=== PATIENT | female | born 1975 | race Caucasian/White ===

== ENCOUNTER 2016-12-28 09:19 | Outpatient (CLI) | payer MEDICAID ==
[2016-12-28] MEDS ORDERED: IOPAMIDOL-300 50 ML VIAL PO ONE (10:56)
[2016-12-28] MEDS ORDERED: IOPAMIDOL-300 100 ML VIAL IVP ONE (10:56)
--- NOTE | 2016-12-28 12:43 | CT Report ---
CT ABDOMEN AND PELVIS WITH AND WITHOUT CONTRAST: 12/28/2016 CLINICAL INDICATION: Increasing right-sided pain. TECHNIQUE: Axial CT images of the abdomen and pelvis were obtained prior to and following 100 mL Iso nilda-300 intravenously. Oral contrast was also administered. No previous CT is available for boubacar irizarry. In accordance with CT protocol optimization, one or more of the following dose reduction techniques w ere utilized for this exam: automated exposure control, adjustment of mA and/or KV based on patient size, or use of iterative reconstructive technique. FINDINGS: Limited evaluation of the lung bases is unremarkable. Abdomen: The liver, spleen, pancreas, kidneys, and adrenal glands are unremarkable. The patient is status post cholecystectomy. No bowel dilatation, free gas, or free fluid is present. No abdominal adenopathy is seen. Pelvis: The appendix is seen in the right lower quadrant, and is normal in caliber. The pelvic orga ns appear unremarkable. No pelvic adenopathy or free fluid is present. Osseous structures demonstrate degenerative changes. IMPRESSION: CHANGES OF CHOLECYSTECTOMY. OTHERWISE, NORMAL CT OF THE ABDOMEN AND PELVIS WITH AND WIT HOUT CONTRAST. NO EVIDENT ETIOLOGY FOR PATIENT'S RIGHT-SIDED PAIN. JOB #: [id number] EXT JOB #:[id number]
== END 2016-12-28 09:20 | disposition home or self-care (01) ==
LOC: DI 09:19
PROVIDERS: ATTEND Obstetrics & Gynecology
DX: R10.30 Lower abdominal pain, unspecified (principal); Z90.49 Acquired absence of other specified parts of digestive tract
CPT/HCPCS: 74178; Q9967

== ENCOUNTER 2016-12-28 09:22 | Outpatient (CLI) | payer MEDICAID ==
--- NOTE | 2016-12-31 13:09 | Mammography Report ---
DIGITAL SCREENING MAMMOGRAM: 12/28/2016 CLINICAL INDICATION: A 41-year-old for baseline. TECHNIQUE: Routine CC and MLO projections were obtained of the breasts. FINDINGS: The breasts demonstrate scattered fibroglandular densities bilaterally. No suspicious mas ses, clustered microcalcifications, or regions of architectural distortion are identified. IMPRESSION: NEGATIVE EXAMINATION. RECOMMENDATION: Routine annual screening unless otherwise clinically indicated. BI-RADS category 1, negative. STANDARD QUALIFYING STATEMENTS 1. This examination was reviewed with the aid of Computer-Aided Detection (CAD). 2. A negative or benign imaging report should not delay biopsy if clinically suspicious findings are present. Consider surgical consultation if warranted. More than 5% of cancers are not identified by i maging. 3. Dense breasts may obscure an underlying neoplasm. JOB #: [id number] EXT JOB #:[id number]
== END 2016-12-28 09:23 | disposition home or self-care (01) ==
LOC: DI 09:22
PROVIDERS: ATTEND Obstetrics & Gynecology
DX: Z12.31 Encounter for screening mammogram for malignant neoplasm of breast (principal)
CPT/HCPCS: 77067

== ENCOUNTER 2017-01-26 16:30 | Outpatient (CLI) | payer MEDICAID ==
--- NOTE | 2017-01-28 10:34 | MRI Report ---
EXAM: LEFT KNEE MRI WITHOUT CONTRAST EXAM DATE: 01/26/2017 05:25 PM. CLINICAL HISTORY: Left knee pain for one year. COMPARISON: None. TECHNIQUE: Multiplanar, multisequence T1-weighted and fluid-sensitive sequences of the knee without c ontrast. Other: None. FINDINGS: Bones: No fractures or subluxations. No marrow edema. No bone lesions. Articular Cartilage: Unremarkable. Medial Meniscus: The medial meniscus is intact. Lateral Meniscus: The lateral meniscus is intact. Cruciate Ligaments: The anterior and posterior cruciate ligaments are intact. Collateral Ligaments: The medial collateral and lateral collateral ligamentous structures are intact. Tendons: The quadriceps, semimembranosus, popliteus tendons are unremarkable. There is mild proximal patellar tendinosis. Musculature: No edema or fatty atrophy. Other: A minimal knee effusion is demonstrated. No popliteal cyst. No loose bodies. The medial and l ateral retinacula are intact. Prepatellar subcutaneous edema is present. IMPRESSION: 1. Mild proximal patellar tendinosis. 2. Minimal knee effusion. [facility] MUSCULOSKELETAL RADIOLOGY SECTION Referring Provider Line: [phone] SITE ID: [id number]
== END 2017-01-26 16:31 | disposition home or self-care (01) ==
LOC: DI 16:30
PROVIDERS: ATTEND Orthopaedic Surgery
DX: M67.962 Unspecified disorder of synovium and tendon, left lower leg (principal); M25.462 Effusion, left knee

== ENCOUNTER 2018-02-06 12:48 | Emergency (ER) | payer SELFPAY ==
[2018-02-06 13:42] LABS: BASOPHILS # (AUTO) 0.1 10^3/uL (0.0-0.1); BASOPHILS % (AUTO) 0.9 %; EOSINOPHILS # (AUTO) 0.1 10^3/uL (0.0-0.7); EOSINOPHILS % (AUTO) 2.5 %; HGB - HEMOGLOBIN 14.2 g/dL (12.0-16.0); LYMPHOCYTES # (AUTO) 2.1 10^3/uL (1.5-3.5); LYMPHOCYTES % (AUTO) 35.7 %; MEAN CORPUSCULAR HEMOGLOBIN 27.1 pg (27.0-31.0); MEAN CORPUSCULAR HGB CONC 33.9 g/dL (32.0-36.0); MEAN CORPUSCULAR VOLUME 79.8 fL (81.0-99.0); MEAN PLATELET VOLUME 7.2 fL (7.9-10.8); MONOCYTES # (AUTO) 0.7 10^3/uL (0.0-1.0); MONOCYTES % (AUTO) 12.7 %; NEUTROPHILS # (AUTO) 2.8 10^3/uL (1.5-6.6); NEUTROPHILS % (AUTO) 48.2 %; PLT - PLATELET COUNT 276 10^3/uL (130-450); RED BLOOD COUNT 5.25 10^6/uL (4.20-5.40); RED CELL DISTRIBUTION WIDTH 15.5 % (12.0-15.0); WHITE BLOOD COUNT 5.8 x10^3/uL (4.8-10.8)
[2018-02-06] MEDS ORDERED: ONDANSETRON 4 MG/2 ML VIAL IVP STA (13:47)
[2018-02-06 13:55] LABS: ALBUMIN 4.1 g/dL (3.2-5.5); BILIRUBIN,TOTAL 1.1 mg/dL (0.2-1.0); CALCIUM 8.9 mg/dL (8.5-10.3); CREATININE 0.7 mg/dL (0.4-1.0); TOTAL PROTEIN 8.1 g/dL (6.7-8.2)
[2018-02-06] MEDS ORDERED: POTASSIUM CHLORIDE 20 MEQ TABLET PO STA (14:01)
[2018-02-06] MEDS ORDERED: SODIUM CHLORIDE 0.9% 1,000 ML IV ONE (14:01)
--- NOTE | 2018-02-06 14:23 | ED Physician Documentation ---
History of Present Illness - Stated complaint Stated Complaint: N/V/D - Chief complaint Chief Complaint: Abd Pain - History obtained from History obtained from: Patient - Additonal information Additional information: 42-year-old female presents the emergency department with 5 days of nausea, vomiting and diarrhea which has progressively worsened. The patient reports generalized abdominal cramping which is associated with the episodes of diarrhea and vomiting. The patient denies any focal area of abdominal pain or blood in the vomit or stools. The patient denies any recent antibiotic usage, but the patient was recently in [place]. The patient denies fevers or chills. No relieving factors. Symptoms are described as moderate.Recently the patient has no active abdominal pain or vomiting or diarrhea Review of Systems Constitutional: reports: Fatigue. 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: Ovarian cysts : None HEENT: None Psych: None Musculoskeletal: None Derm: None - Past Surgical History Past Surgical History: Yes General: 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, 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 - Present Medications Home Medications: Ambulatory Orders Medication Instructions Recorded Confirmed Ondansetron Odt [Zofran] 4 mg TL Q6H PRN #20 tablet 02/06/18 - Allergies Allergies/Adverse Reactions: Allergies Allergy/AdvReac Type Severity Reaction Status Date / Time No Known Drug Allergies Allergy Verified 02/06/18 13:01 - Social History Does the pt smoke?: No Smoking Status: Never smoker Does the pt drink ETOH?: No Does the pt have substance abuse?: No - Immunizations Immunizations are current?: Yes - POLST Patient has POLST: No PD ED PE NORMAL - General General: Alert and oriented X 3, No acute distress - HEENT HEENT: Atraumatic, PERRL, EOMI, Ears normal, Moist mucous membranes - Cardiac Cardiac: RRR, Strong equal pulses - Respiratory Respiratory: No respiratory distress - Abdomen Abdomen: Normal bowel sounds, Soft, Non tender, Non distended - Derm Derm: Normal color, Warm and dry, No rash - Extremities Extremities: No deformity - Neuro Neuro: Alert and oriented X 3, Normal speech - Psych Psych: Normal mood Results - Vitals Vitals: Vital Signs - 24 hr 02/06/18 13:00 Temperature 36.1 C L Heart Rate 95 Respiratory 18 Rate Blood Pressure 130/94 H O2 Saturation 96 Oxygen O2 Source Room air - Labs Labs: Laboratory Tests 02/06/18 02/06/18 02/06/18 13:37 13:37 14:26 WBC 5.8 RBC 5.25 Hgb 14.2 Hct 41.9 MCV 79.8 L MCH 27.1 MCHC 33.9 RDW 15.5 H Plt Count 276 MPV 7.2 L Neut # (Auto) 2.8 Lymph # (Auto) 2.1 [place] # (Auto) 0.7 Eos # (Auto) 0.1 Baso # (Auto) 0.1 Absolute Nucleated RBC 0.00 Nucleated RBC % 0.1 Sodium 135 Potassium 3.1 L Chloride 105 Carbon Dioxide 23 Anion Gap 7.0 BUN 16 Creatinine 0.7 Estimated GFR (MDRD) 92 Glucose 109 H Calcium 8.9 Total Bilirubin 1.1 H AST 37 ALT 48 Alkaline Phosphatase 101 Total Protein 8.1 Albumin 4.1 Globulin 4.0 Albumin/Globulin Ratio 1.0 Lipase 24 Urine Color YELLOW Urine Clarity HAZY Urine pH 6.0 Ur Specific [place] 1.025 Urine Protein TRACE Urine Glucose (UA) NEGATIVE Urine Ketones TRACE Urine Occult Blood NEGATIVE Urine Nitrite NEGATIVE Urine Bilirubin NEGATIVE Urine Urobilinogen 0.2 (NORMAL) Ur Leukocyte Esterase NEGATIVE Ur Microscopic Review INDICATED Urine Culture Comments Not Reportable Urine HCG, Qual 02/06/18 14:26 WBC RBC Hgb Hct MCV MCH MCHC RDW Plt Count MPV Neut # (Auto) Lymph # (Auto) [place] # (Auto) Eos # (Auto) Baso # (Auto) Absolute Nucleated RBC Nucleated RBC % Sodium Potassium Chloride Carbon Dioxide Anion Gap BUN Creatinine Estimated GFR (MDRD) Glucose Calcium Total Bilirubin AST ALT Alkaline Phosphatase Total Protein Albumin Globulin Albumin/Globulin Ratio Lipase Urine Color Urine Clarity Urine pH Ur Specific [place] 1.025 Urine Protein Urine Glucose (UA) Urine Ketones Urine Occult Blood Urine Nitrite Urine Bilirubin Urine Urobilinogen Ur Leukocyte Esterase Ur Microscopic Review Urine Culture Comments Urine HCG, Qual NEGATIVE - Rads (name of study) Acute abdominal series Radiology: Final report received, See rad report PD MEDICAL DECISION MAKING - ED course ED course: The patient's symptoms most likely represent a viral etiology. On reexamination the patient resting comfortably and is denying any area of discomfort. The patient has no focal area of pain or current pain. The patient appears appropriate for discharge home in ongoing outpatient management. I discussed with the patient warning signs for a more serious intra -abdominal process and recommended returning to the emergency department for reevaluation and further workup. Currently at this time the patient's symptoms do not necessitate any further advanced imaging in the emergency department. - Sepsis Event Vital Signs: Vital Signs - 24 hr 02/06/18 13:00 Temperature 36.1 C L Heart Rate 95 Respiratory 18 Rate Blood Pressure 130/94 H O2 Saturation 96 Oxygen O2 Source Room air Departure - Departure Disposition: 01 Home, Self Care Clinical Impression: Vomiting Qualifiers: Vomiting type: unspecified Vomiting Intractability: non-intractable Nausea presence: with nausea Qualified Code(s): R11.2 - Nausea with vomiting, unspecified Abdominal pain Qualifiers: Abdominal location: unspecified location Qualified Code(s): R10.9 - Unspecified abdominal pain Diarrhea Qualifiers: Diarrhea type: unspecified type Qualified Code(s): R19.7 - Diarrhea, unspecified Condition: Good Instructions: Abdominal Pain, ED Diarhhea Viral Ch, ED Nausea Vomiting Prescriptions: Ondansetron Odt [Zofran] 4 mg TL Q6H PRN #20 tablet PRN Reason: Nausea / Vomiting Comments: Please follow-up with primary care this coming week. Please return to the emergency department immediately for worsening symptoms or new concerns
[2018-02-06 14:44] LABS: BILIRUBIN,URINE NEGATIVE (NEGATIVE); GLUCOSE, URINE (UA) NEGATIVE (NEGATIVE); KETONES,URINE (UA) TRACE mg/dL (NEGATIVE); LEUKOCYTE ESTERASE, URINE NEGATIVE (NEGATIVE); NITRITE,URINE NEGATIVE (NEGATIVE); OCCULT BLOOD,URINE NEGATIVE (NEGATIVE); PROTEIN,URINE TRACE mg/dL (NEGATIVE); UROBILINOGEN,URINE 0.2 (NORMAL) E.U./dL (NORMAL)
[2018-02-06 14:47] LABS: CLARITY,URINE HAZY (CLEAR); HCG UR QUAL NEGATIVE
--- NOTE | 2018-02-06 15:01 | XRAY Report ---
Procedure Date: 02/06/2018 Accession Number: [id number] / [id number] Procedure: XR - Abdomen Acute CPT Code: FULL RESULT: EXAM: ABDOMINAL SERIES AND PA CHEST EXAM DATE: 02/06/2018 02:19 PM. CLINICAL HISTORY: N/v/d. COMPARISON: CT abdomen pelvis 12/28/2016. TECHNIQUE: 3 views abdomen and 1 view chest. FINDINGS: CHEST: Lungs/Pleura: No focal opacities. No effusion or pneumothorax. Mediastinum: Within exam limitations, cardiomediastinal contour is normal. ABDOMEN: Bowel Gas Pattern: Gas in stomach, small bowel, and colon without abnormal distention or air-fluid levels. No significant formed stool in the colon. No pneumatosis or portal venous gas. Free Air: None. Other: Cholecystectomy clips. IMPRESSION: Unremarkable bowel gas pattern. [facility]
[2018-02-06 15:10] VITALS: BP 112/81
[2018-02-06 15:19] LABS: BACTERIA,URINE Few /HPF (None Seen); MUCUS,URINE Moderate Strands; RBC,URINE 0-5 /HPF (0-5); SQUAMOUS EPITHELIAL CELL,UR MANY Squamous (<= Few)
== END 2018-02-06 15:44 | disposition home or self-care (01) ==
LOC: ED 12:48
DX: R11.2 Nausea with vomiting, unspecified (principal); R10.9 Unspecified abdominal pain; R19.7 Diarrhea, unspecified
CPT/HCPCS: 36415; 74022; 80053; 81001; 81025; 83690; 85025; 96361; 96374; 99283; 99284; A9270; 81003; 87086

== ENCOUNTER 2018-10-14 16:14 | Outpatient (CLI) | payer MEDICAID ==
--- NOTE | 2018-10-15 10:30 | Mammography Report ---
Reason: BREAST,SCREENING FOR MALIGNANT NEOPLASM Procedure Date: 10/15/2018 Accession Number: [id number] / [id number] Procedure: ANAT - Screening Mammo w/Rishi CPT Code: FULL RESULT: EXAM: Screening Mammo w/Rishi DATE: 10/15/2018 10:20 AM CLINICAL HISTORY: Screening encounter. No reported risk factors. TECHNIQUE: Bilateral CC and MLO views were obtained. COMPARISON: 12/28/2016. FINDINGS: The breasts demonstrate scattered fibroglandular densities bilaterally. No suspicious masses, clustered microcalcifications, or regions of architectural distortion are identified. IMPRESSION: Negative examination RECOMMENDATION: Routine annual screening unless otherwise clinically indicated. BIRADS CATEGORY 1: Negative STANDARD QUALIFYING STATEMENTS: 1. This examination was not reviewed with the aid of Computer-Aided Detection (CAD). 2. A negative or benign imaging report should not delay biopsy if clinically suspicious findings are present. Consider surgical consultation if warrented. More than 5% of cancers are not identified by imaging. 3. Dense breasts may obscure an underlying neoplasm. 4. This examination was reviewed with the aid of 3D breast imaging (tomosynthesis).
== END 2018-10-14 16:15 | disposition home or self-care (01) ==
LOC: DI 16:14
PROVIDERS: ATTEND Nurse Practitioner Obstetrics & Gynecology
DX: Z12.31 Encounter for screening mammogram for malignant neoplasm of breast (principal)
CPT/HCPCS: 77063; 77067

== ENCOUNTER 2020-06-20 07:00 | Outpatient (CLI) | payer MEDICAID ==
[2020-06-20 22:15] LABS: CANDIDA GROUP DNA NEGATIVE (NEGATIVE); CANDIDA KRUSEI DNA NEGATIVE (NEGATIVE); TRICHOMONAS VAGINALIS DNA NEGATIVE (NEGATIVE)
== END 2020-06-20 23:59 | disposition home or self-care (01) ==
LOC: LAB.R 07:00
PROVIDERS: ATTEND Obstetrics & Gynecology
DX: R10.9 Unspecified abdominal pain (principal)
CPT/HCPCS: 87661; 87801

== ENCOUNTER 2020-07-06 18:47 | Outpatient (CLI) | payer MEDICAID ==
--- NOTE | 2020-07-07 09:28 | Ultrasound Report ---
PROCEDURE: Pelvic w/Transvaginal INDICATIONS: PELVIC PAIN LEFT, UNSPECIFIED ABD PAIN. S/P LSO TECHNIQUE: Real-time scanning was performed of the pelvic organs, with image documentation. Additional endovagi nal scanning was necessary due to incomplete visualization of the adnexal and endometrial structures by transabdominal scanning. COMPARISON: CT abdomen/pelvis 01/07/2017. FINDINGS: Transabdominal scanning: Limited scanning through the kidneys shows no hydronephrosis. No pathologi c free abdominal or pelvic fluid. Endovaginal scanning: Uterus: Uterus is moderately enlarged in size at 4.4 x 8.6 x 14.4 cm. The endometrium measures 9.9 mm in combined thickness. Discrete uterine fibroids are not seen. Ovaries: Left ovary reportedly surgically absent, right ovary measures 2.9 x 3.9 x 4.3 cm. IMPRESSION: Reported prior left oophorectomy, right ovary is relatively poorly seen but appears free of mass or a bnormal enlargement. The uterus is moderately enlarged, and the myometrium is mildly heterogeneous, b ut no uterine fibroid is found. An endometrial mass is not identified. A definite source of left-side d pain is not seen, depending on the clinical status follow-up by pelvic CT scanning may be warranted . Reviewed by: Rony Kingston MD on 07/07/2020 9:26 AM PST Approved by: Rony Kingston MD on 07/07/2020 9:26 AM PST Station ID: [id number]
--- NOTE | 2020-07-07 09:59 | Ultrasound Report ---
PROCEDURE: Retroperitoneal INDICATIONS: LT PELVIC PAIN, UNSP ABD PAIN TECHNIQUE: Real-time scanning was performed of the retroperitoneal organs, with image documentation. COMPARISON: None. FINDINGS: Kidneys: Kidneys are normal in size. Right kidney measures 11.3 cm long; left kidney measures 12.2 cm long. Right renal cortical thickness is 1.8 cm; left renal cortical thickness is 1.8 cm. No shanel d masses, hydronephrosis, or nephrolithiasis. Pancreas: Visualized portions of the pancreas are sonographically normal. Aorta: Visualized aorta is normal in caliber at 3 cm or less. Iliac arteries: Proximal common iliac arteries are normal in caliber at 2.5 cm or less. IVC: Intrahepatic inferior vena cava is patent. Miscellaneous: No free abdominal fluid. Normal bladder function with 369 cc prevoid and 30 cc postv oid IMPRESSION: No hydronephrosis or nephrolithiasis found. No suspicion for urinary tract stone seen. A source of le ft-sided pelvic pain is not identified. Reviewed by: Rony Kingston MD on 07/07/2020 9:58 AM PST Approved by: Rony Kingston MD on 07/07/2020 9:58 AM PST Station ID: [id number]
== END 2020-07-06 18:48 | disposition home or self-care (01) ==
LOC: DI 18:47
PROVIDERS: ATTEND Obstetrics & Gynecology
DX: R10.2 Pelvic and perineal pain (principal); N85.2 Hypertrophy of uterus; Z90.721 Acquired absence of ovaries, unilateral

== ENCOUNTER 2022-01-03 21:52 | Emergency (ER) | payer MEDICAID ==
[2022-01-03 22:03] VITALS: BP 137/85
== END 2022-01-04 00:10 | disposition left against medical advice (07) ==
LOC: ED 21:52
DX: Z53.21 Procedure and treatment not carried out due to patient leaving prior to being seen by health care provider (principal)

== ENCOUNTER 2022-07-24 15:46 | Outpatient (CLI) | payer MEDICAID ==
[2022-07-24 16:13] LABS: HCT - HEMATOCRIT 31.5 % (37.0-47.0); HGB - HEMOGLOBIN 9.3 g/dL (12.0-16.0); MEAN CORPUSCULAR HEMOGLOBIN 21.7 pg (27.0-31.0); MEAN CORPUSCULAR HGB CONC 29.5 g/dL (32.0-36.0); MEAN CORPUSCULAR VOLUME 73.4 fL (81.0-99.0); MEAN PLATELET VOLUME 8.7 fL (7.9-10.8); RED BLOOD COUNT 4.29 10^6/uL (4.20-5.40); RED CELL DISTRIBUTION WIDTH 18.4 % (12.0-15.0); WHITE BLOOD COUNT 4.8 x10^3/uL (4.8-10.8)
[2022-07-24 16:35] LABS: THYROID STIMULATING HORMONE 0.93 uIU/mL (0.34-5.60)
[2022-07-24 16:38] LABS: FREE T4 (FREE THYROXINE) 1.07 ng/dL (0.58-1.64)
== END 2022-07-24 15:47 | disposition home or self-care (01) ==
LOC: LAB 15:46
PROVIDERS: ATTEND Nurse Practitioner
DX: N93.9 Abnormal uterine and vaginal bleeding, unspecified (principal)
CPT/HCPCS: 36415; 81001; 82728; 84439; 84443; 85027; 87086

== ENCOUNTER 2022-07-25 08:00 | Outpatient (CLI) | payer MEDICAID ==
[2022-07-25 13:23] LABS: BILIRUBIN,URINE NEGATIVE (NEGATIVE); GLUCOSE, URINE (UA) NEGATIVE (NEGATIVE); KETONES,URINE (UA) NEGATIVE (NEGATIVE); LEUKOCYTE ESTERASE, URINE NEGATIVE (NEGATIVE); NITRITE,URINE NEGATIVE (NEGATIVE); OCCULT BLOOD,URINE LARGE (NEGATIVE); PROTEIN,URINE NEGATIVE (NEGATIVE); UROBILINOGEN,URINE 0.2 (NORMAL) E.U./dL (NORMAL)
[2022-07-25 13:24] LABS: CLARITY,URINE CLOUDY (CLEAR)
[2022-07-25 13:31] LABS: AMORPHOUS SEDIMENT,UR Marked /LPF; BACTERIA,URINE Few /HPF (None Seen); RBC,URINE 0-5 /HPF (0-5); SQUAMOUS EPITHELIAL CELL,UR RARE Squamous (<= Few); WBC,URINE 0-3 /HPF (0-5)
[2022-07-25 23:19] LABS: BACTERIAL VAGINOSIS DNA NEGATIVE (NEGATIVE); CANDIDA GLABRATA DNA NEGATIVE (NEGATIVE); CANDIDA GROUP DNA NEGATIVE (NEGATIVE); CANDIDA KRUSEI DNA NEGATIVE (NEGATIVE); TRICHOMONAS VAGINALIS DNA NEGATIVE (NEGATIVE)
[2022-07-27 18:54] LABS: CHLAMYDIA TRACHOMATIS DNA NEGATIVE (NEGATIVE); NEISSERIA GONORRHOEAE DNA NEGATIVE (NEGATIVE)
== END 2022-07-25 23:59 | disposition home or self-care (01) ==
LOC: LAB.WC 08:00
PROVIDERS: ATTEND Nurse Practitioner
DX: N93.9 Abnormal uterine and vaginal bleeding, unspecified (principal)
CPT/HCPCS: 81001; 81514; 87086; 87491; 87591; 87661

== ENCOUNTER 2022-08-07 20:38 | Outpatient (CLI) | payer MEDICAID ==
--- NOTE | 2022-08-08 15:53 | Ultrasound Report ---
PROCEDURE: Pelvic w/Transvaginal INDICATIONS: ABN UTERINE BLEEDING TECHNIQUE: Real-time scanning was performed of the pelvic organs, with image documentation. Additional endovagi nal scanning was necessary due to incomplete visualization of the adnexal and endometrial structures by transabdominal scanning. COMPARISON: Pelvic ultrasound 07/06/2020 FINDINGS: Uterus: Uterus is retroverted and enlarged in size at 13.8 x 5.6 x 6.9 cm. The myometrium is hetero geneous. The endometrium measures 14.9 mm in combined thickness. No focal uterine masses are identi fied. Ovaries: The right ovary measures 4.9 x 4.1 x 5.6 cm, with a calculated ovarian volume of 59.3 cc. The left has been removed. There are foci of decreased echogenicity within the left ovary measuring 2 7 x 30 x 36 cm, 30 x 17 x 23 mm and 13 x 7 x 11 mm. Other: No pathologic free abdominal or pelvic fluid. IMPRESSION: Heterogeneous appearance of the uterus with enlargement. Although no discrete fibroids are identified , given enlargement and history of uterine bleeding, nonvisualized fibroids cannot be excluded. Right ovarian cysts. Reviewed by: Shannon Paredes MD on 08/08/2022 3:52 PM PST Approved by: Shannon Paredes MD on 08/08/2022 3:52 PM PST Station ID: [id number]
== END 2022-08-07 20:39 | disposition home or self-care (01) ==
LOC: DI 20:38
PROVIDERS: ATTEND Nurse Practitioner
DX: N93.9 Abnormal uterine and vaginal bleeding, unspecified (principal); N85.2 Hypertrophy of uterus; N83.201 Unspecified ovarian cyst, right side

== ENCOUNTER 2022-12-27 21:08 | Outpatient (CLI) | payer MEDICAID ==
--- NOTE | 2022-12-28 10:01 | Ultrasound Report ---
PROCEDURE: Pelvic w/Transvaginal INDICATIONS: IUD INSERTION TECHNIQUE: Real-time scanning was performed of the pelvic organs, with image documentation. Additional endovagi nal scanning was necessary due to incomplete visualization of the adnexal and endometrial structures by transabdominal scanning. COMPARISON: 08/07/2022 FINDINGS: Uterus: Enlarged uterus measuring a calculated volume of 330 cc, measuring about 11 x 5.5 x 10 cm. Re troverted positioning. Echotexture is heterogeneous. Endometrium measures 23 mm. The IUD appears to be in the lower uterine segment. Sonographic visualiza tion is suboptimal however. There are nabothian cysts. Ovaries: Right ovary measures a volume of 38 cc. There may be cysts, difficult to visualize on ultras ound. Left ovary is absent. Other: No pathologic free fluid. IMPRESSION: IUD appears to be a lower uterine segment. Enlarged uterus with heterogeneity, with differential including adenomyosis. Thickened endometrium me asuring 23 mm. Enlarged right ovary, possibly with multiple cysts. The left ovary is absent. Overall sonographic visualization is suboptimal. If there is need for further imaging, consider MRI. Reviewed by: Luis Rao MD on 12/28/2022 10:00 AM PDT Approved by: Luis Rao MD on 12/28/2022 10:00 AM PDT Station ID: [id number]
== END 2022-12-27 21:09 | disposition home or self-care (01) ==
LOC: DI 21:08
PROVIDERS: ATTEND Obstetrics & Gynecology
DX: Z30.431 Encounter for routine checking of intrauterine contraceptive device (principal)

== ENCOUNTER 2023-01-03 10:57 | Emergency (ER) | payer MEDICAID ==
[2023-01-03 11:36] LABS: BASOPHILS % (AUTO) 0.3 %; EOSINOPHILS # (AUTO) 0.1 10^3/uL (0.0-0.7); EOSINOPHILS % (AUTO) 1.1 %; HCT - HEMATOCRIT 27.9 % (37.0-47.0); HGB - HEMOGLOBIN 8.7 g/dL (12.0-16.0); LYMPHOCYTES # (AUTO) 1.8 10^3/uL (1.5-3.5); LYMPHOCYTES % (AUTO) 28.8 %; MEAN CORPUSCULAR HEMOGLOBIN 24.6 pg (27.0-31.0); MEAN CORPUSCULAR HGB CONC 31.2 g/dL (32.0-36.0); MEAN CORPUSCULAR VOLUME 78.8 fL (81.0-99.0); MEAN PLATELET VOLUME 8.4 fL (7.9-10.8); MONOCYTES # (AUTO) 0.5 10^3/uL (0.0-1.0); MONOCYTES % (AUTO) 7.9 %; NEUTROPHILS # (AUTO) 3.8 10^3/uL (1.5-6.6); NEUTROPHILS % (AUTO) 61.6 %; PLT - PLATELET COUNT 271 10^3/uL (130-450); RED BLOOD COUNT 3.54 10^6/uL (4.20-5.40); RED CELL DISTRIBUTION WIDTH 16.2 % (12.0-15.0); WHITE BLOOD COUNT 6.2 x10^3/uL (4.8-10.8)
[2023-01-03 11:46] LABS: ALBUMIN 3.5 g/dL (3.2-5.5); ALBUMIN/GLOBULIN RATIO 1.1 (1.0-2.2); BILIRUBIN,TOTAL 0.5 mg/dL (0.2-1.0); CALCIUM 7.8 mg/dL (8.5-10.3); CREATININE 0.5 mg/dL (0.4-1.0); POTASSIUM 3.8 mmol/L (3.5-5.0); TOTAL PROTEIN 6.7 g/dL (6.7-8.2)
--- NOTE | 2023-01-03 12:39 | CONSULTATION NOTE ---
Surgery Consult - Consult Date Consult Date: 01/03/23 - Chief Complaint Chief Complaint: vaginal bleeding - Home Meds/Allergies Allergies/Adverse Reactions: Allergies Allergy/AdvReac Type Severity Reaction Status Date / Time No Known Drug Allergies Allergy Verified 01/03/23 11:10 - Vital Signs Vital Signs: Last Vital Signs Temp 97.5 F L 01/03/23 11:10 Pulse 73 01/03/23 11:10 Resp 16 01/03/23 11:10 BP 132/76 H 01/03/23 11:10 Pulse Ox 99 01/03/23 11:10 O2 Flow Rate - Lab Results Result Diagrams: 01/03/23 11:28 01/03/23 11:28 - Consultation Note Consultation Note: Patient is a patient is a 47-year-old G3, P3 presenting to the ED today for p rolonged vaginal bleeding. She has been trying this for some time. She recently had an IUD placed by Dr. Vaughn 2 weeks ago. Her last several days she had increased bleeding soaking approximately 1 pad per hour. She was advised to go to the ED as she had some dizziness. After arrival here, she was noted to have an ultrasound that showed an IUD in the lower uterine segment, but appears to be not in the cervix. She is hemodynamically stable today. She feels well although she was mostly wo rried about the bleeding. Past medical history Iron deficiency anemia Adenomyosis Chronic pelvic pain Abnormal uterine bleeding Past surgical history Cholecystectomy Left knee arthroscopy section x2, oophorectomy Family history Father at age 55 of unknown causes Social history Denies tobacco, alcohol, drugs Physical Exam Constitutional: alert, no acute distress, well hydrated, well developed, well nourished, appropriate dress. Cardiovascular: Regular rate and rhythm. Respiratory: no respiratory distress. Abdomen: Obese, nondistended, nontender, no guarding. Multiple abdominal incisions including Pfannenstiel, vertical midline, and laparoscopic scars Psych: affect and mood appropriate, normal interaction, good eye contact. Transvaginal ultrasound showing IUD in uterine segmen approximately 1 week ago t Assessment and plan 47-year-old G3, P3 with abnormal uterine bleeding 1. Abnormal uterine bleeding -Likely an exacerbation from before. Not long enough for IUD to take effectiveness. Did recommend a dose of tranexamic acid, and patient can try 600 to 800 mg ibuprofen 3 times a day for 5 days. Should follow-up with us in clinic to assess management. Would not recommend removal of IUD as it is not in the cervix. If bleeding picks up, will consider urgent surgical evaluation. Should continue with planned iron infusions in 5 days. -Discussed possibility of future endometrial ablation, with thickened endometrium, this may be less effective. Hesitant to do hysterectomy given her multiple surgeries before. -Discussed bleeding precautions. Patient feels comfortable to go home. Follow- up in clinic in 1 week.
[2023-01-03] MEDS ORDERED: TRANEXAMIC ACID 1,000 MG in SODIUM CHLORIDE 0.9% 100ML 100 ML IV STA (12:50)
--- NOTE | 2023-01-03 12:53 | ED Physician Documentation ---
PD HPI FEMALE - Stated complaint Stated Complaint: FEMALE - Chief complaint Chief Complaint: Abd Pain - History obtained from History obtained from: Patient - History of Present Illness Timing - onset: How many months ago (7) Timing - duration: Months Timing - details: Gradual onset, Still present Associated symptoms: Vaginal bleeding Contributing factors: IUD OB-HOME IMPROVEMENT ADVISOR History: G (3), P (3), Prior C section, Ovarian cysts, Oopeherctomy Similar symptoms before: Diagnosis (DUB) Recently seen: Clinic - Additional information Additional information: Dottie Woods is a 47-year-old 3 para 3 who has had sections and oophorectomy. She has had vaginal bleeding since May that has periodically been heavy and occasionally almost gone. She has been in to see the [facility] IMPROVEMENT ADVISOR clinic and 2 weeks ago an IUD was placed to assist with decreasing the bleeding. Over the past 3 days the patient has had increased bleeding she is saturating a pad per hour. She was asked to come to the emergency department by HOME IMPROVEMENT ADVISOR. She has had an ultrasound showing the IUD in the lower uterine segment. Review of Systems Constitutional: denies: Fever Ears: denies: Ear pain Nose: denies: Congestion Throat: denies: Sore throat Cardiac: denies: Chest pain / pressure, Palpitations Respiratory: denies: Dyspnea, Cough GI: denies: Abdominal Pain, Nausea, Vomiting, Constipation, Diarrhea : reports: Vaginal bleeding. denies: Dysuria, Frequency PD PAST MEDICAL HISTORY - Past Medical History Past Medical History: Yes Cardiovascular: None Respiratory: None Endocrine/Autoimmune: None GI: None HOME IMPROVEMENT ADVISOR: Ovarian cysts : None HEENT: None Psych: None Musculoskeletal: None Derm: None - Past Surgical History Past Surgical History: Yes General: Cholecystectomy /HOME IMPROVEMENT ADVISOR: section, Oophrectomy - Present Medications Home Medications: Ambulatory Orders Medication Instructions Recorded Confirmed Ondansetron Odt [Zofran] 4 mg TL Q6H PRN #20 tablet 02/06/18 Tranexamic Acid 650 mg PO TID #15 tablet 01/03/23 - Allergies Allergies/Adverse Reactions: Allergies Allergy/AdvReac Type Severity Reaction Status Date / Time No Known Drug Allergies Allergy Verified 01/03/23 11:10 - Social History Does the pt smoke?: No Smoking Status: Never smoker Does the pt drink ETOH?: No Does the pt have substance abuse?: No - Immunizations Immunizations are current?: Yes - POLST Patient has POLST: No PD ED PE NORMAL - Vitals Vital signs reviewed: Yes (hypertensive) - General General: Alert and oriented X 3, No acute distress, Well developed/nourished, Other (Pale appearing appearing 47-year-old female with pale lips and white eyes) - HEENT HEENT: Atraumatic, PERRL, EOMI - Neck Neck: Supple, no meningeal sign, No bony TTP - Cardiac Cardiac: RRR, No murmur - Respiratory Respiratory: No respiratory distress, Clear bilaterally - Abdomen Abdomen: Soft, Non tender - Back Back: No CVA TTP, No spinal TTP - Derm Derm: Normal color, Warm and dry, No rash - Extremities Extremities: No deformity, No edema - Neuro Neuro: Alert and oriented X 3, 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, No motor deficit, No sensory deficit, Normal speech Eye Opening: Spontaneous Motor: Obeys Commands Verbal: Oriented GCS Score: 15 - Psych Psych: Normal mood, Normal affect Results - Vitals Vitals: Vital Signs - 24 hr 01/03/23 01/03/23 11:10 13:55 Temperature 36.4 C L 36.5 C Heart Rate 73 72 Respiratory 16 16 Rate Blood Pressure 132/76 H 130/71 O2 Saturation 99 98 Oxygen O2 Source Room air - Labs Labs: Laboratory Tests 01/03/23 01/03/23 11:28 11:28 WBC 6.2 RBC 3.54 L Hgb 8.7 L Hct 27.9 L MCV 78.8 L MCH 24.6 L MCHC 31.2 L RDW 16.2 H Plt Count 271 MPV 8.4 Neut # (Auto) 3.8 Lymph # (Auto) 1.8 [place] # (Auto) 0.5 Eos # (Auto) 0.1 Baso # (Auto) 0.0 Absolute Nucleated RBC 0.00 Nucleated RBC % 0.0 Sodium 138 Potassium 3.8 Chloride 108 Carbon Dioxide 26 Anion Gap 4.0 L BUN 11 Creatinine 0.5 Estimated GFR (MDRD) 133 Glucose 87 Calcium 7.8 L Total Bilirubin 0.5 AST 25 ALT 24 Alkaline Phosphatase 73 Total Protein 6.7 Albumin 3.5 Globulin 3.2 Albumin/Globulin Ratio 1.1 Lipase 41 PD Medical Decision Making - ED course Reviewed Lab Results: We reviewed a complete blood count showing a normal white blood cell count and a hemoglobin of 8.7 down from 9.3 in July hematocrit of 27.9 down from 31.5 in July normal platelets normal electrolytes normal kidney and liver functionMy interpretation of these laboratory values combined with the patient's presentation indicate that she has adjusted to a low hemoglobin she has a normal heart rate and appears to be tolerating this. She does not have a dramatic drop in her hemoglobin or hematocrit with months of bleeding. ED course: 47-year-old female with persistent vaginal bleeding despite placement of an IUD is evaluated by Brandon Selby in the emergency department. He recommends administration of tranexamic acid and they will follow-up with the patient in clinic. She does have an iron infusion scheduled for Saturday of next week about 4 days from now. Departure - Departure Disposition: , Self Care Clinical Impression: Dysfunctional uterine bleeding Condition: Stable Instructions: ED Bleed Irregular Vaginal Follow-Up: Brandon Selby MD [Provider Admit Priv/Credential] - Prescriptions: Tranexamic Acid 650 mg PO TID #15 tablet Comments: Dottie, today it looks like you have compensated well for a low blood count. We have given you some tranexemic acid by vein and there is a script that has been e-scribed to [facility] in [place]. Take this medication 3 times per day. Continued bleeding can lead to an even lower blood count and my recommendation i s that if your heart rate is persistently over 100 return to the emergency department. This would be an indication that you may need blood. Otherwise follow-up with HOME IMPROVEMENT ADVISOR as previously planned and with the [facility] clinic for your iron infusion. Discharge Date/Time: 01/03/23 14:00
[2023-01-03 14:00] VITALS: BP 130/71
[2023-01-03] MEDS ORDERED: TRANEXAMIC ACID IN NACL 1,000 MG/100 ML BAG IV ONE (14:00)
== END 2023-01-03 14:00 | disposition home or self-care (01) ==
LOC: ED 10:57
DX: N93.8 Other specified abnormal uterine and vaginal bleeding (principal)
CPT/HCPCS: 36415; 80053; 83690; 85025; 96374; 99283

== ENCOUNTER 2023-02-13 10:57 | Outpatient (CLI) | payer MEDICAID ==
[2023-02-13 11:05] LABS: HCT - HEMATOCRIT 33.4 % (37.0-47.0); MEAN CORPUSCULAR HEMOGLOBIN 24.6 pg (27.0-31.0); MEAN CORPUSCULAR HGB CONC 29.9 g/dL (32.0-36.0); MEAN CORPUSCULAR VOLUME 82.3 fL (81.0-99.0); MEAN PLATELET VOLUME 8.1 fL (7.9-10.8); RED BLOOD COUNT 4.06 10^6/uL (4.20-5.40); RED CELL DISTRIBUTION WIDTH 18.3 % (12.0-15.0); WHITE BLOOD COUNT 5.2 x10^3/uL (4.8-10.8)
== END 2023-02-13 10:58 | disposition home or self-care (01) ==
LOC: LAB 10:57
PROVIDERS: ATTEND Obstetrics & Gynecology
DX: D50.0 Iron deficiency anemia secondary to blood loss (chronic) (principal)
CPT/HCPCS: 36415; 82728; 85027

== ENCOUNTER 2023-08-12 11:39 | Outpatient (CLI) | payer MEDICAID ==
[2023-08-12 12:13] LABS: BASOPHILS % (AUTO) 0.3 %; EOSINOPHILS % (AUTO) 0.3 %; HCT - HEMATOCRIT 38.9 % (37.0-47.0); HGB - HEMOGLOBIN 13.1 g/dL (12.0-16.0); LYMPHOCYTES # (AUTO) 2.1 10^3/uL (1.5-3.5); LYMPHOCYTES % (AUTO) 32.4 %; MEAN CORPUSCULAR HEMOGLOBIN 30.8 pg (27.0-31.0); MEAN CORPUSCULAR HGB CONC 33.7 g/dL (32.0-36.0); MEAN CORPUSCULAR VOLUME 91.5 fL (81.0-99.0); MEAN PLATELET VOLUME 9.1 fL (7.9-10.8); MONOCYTES # (AUTO) 0.4 10^3/uL (0.0-1.0); MONOCYTES % (AUTO) 5.8 %; NEUTROPHILS # (AUTO) 3.9 10^3/uL (1.5-6.6); PLT - PLATELET COUNT 180 10^3/uL (130-450); RED BLOOD COUNT 4.25 10^6/uL (4.20-5.40); RED CELL DISTRIBUTION WIDTH 12.3 % (12.0-15.0); WHITE BLOOD COUNT 6.3 x10^3/uL (4.8-10.8)
[2023-08-12 12:52] LABS: ALBUMIN 3.7 g/dL (3.2-5.5); ALBUMIN/GLOBULIN RATIO 1.2 (1.0-2.2); BILIRUBIN,TOTAL 0.5 mg/dL (0.2-1.0); CALCIUM 8.3 mg/dL (8.5-10.3); CREATININE 0.4 mg/dL (0.6-1.3); POTASSIUM 3.8 mmol/L (3.5-4.5); TOTAL PROTEIN 6.9 g/dL (6.4-8.9)
== END 2023-08-12 11:40 | disposition home or self-care (01) ==
LOC: LAB 11:39
PROVIDERS: ATTEND Obstetrics & Gynecology
DX: Z01.812 Encounter for preprocedural laboratory examination (principal); N93.9 Abnormal uterine and vaginal bleeding, unspecified
CPT/HCPCS: 36415; 80053; 85025; 86850; 86900; 86901

== ENCOUNTER 2023-08-13 07:34 | Day surgery (SDC) | payer MEDICAID ==
[~2023-08-13 07:34] MED LIST: LACTATED RINGERS 1,000 ML IV ONE
[2023-08-13] MEDS ORDERED: GABAPENTIN 400 MG CAPSULE ONE (07:40)
[2023-08-13] MEDS ORDERED: CELECOXIB 100 MG CAPSULE PO ONE (07:40)
[2023-08-13] MEDS ORDERED: ceFAZolin 2 GM VIAL ONE (07:47)
[2023-08-13] MEDS ORDERED: ACETAMINOPHEN 500 MG TABLET PO ONE (07:50)
[2023-08-13 08:13] LABS: HCG UR QUAL NEGATIVE
[2023-08-13] MEDS ORDERED: LIDOCAINE-PF 2% 10 ML AMP SUBQ ONE (10:03)
[2023-08-13] MEDS ORDERED: PROPOFOL 200 MG/20 ML VIAL IVP ONE (10:03)
[2023-08-13] MEDS ORDERED: fentaNYL 100 MCG/2 ML VIAL ONE (10:04)
[2023-08-13] MEDS ORDERED: ROCURONIUM 50 MG/5 ML VIAL ONE ×2 (10:04→12:14)
[2023-08-13] MEDS ORDERED: MIDAZOLAM 2 MG/2 ML VIAL ONE (10:04)
[2023-08-13] MEDS ORDERED: KETOROLAC 30 MG/ML VIAL ONE (10:21)
[2023-08-13] MEDS ORDERED: MORPHINE PF 5 MG/10 ML VIAL ONE (10:42)
[2023-08-13] MEDS ORDERED: NALOXONE 0.4 MG/ML VIAL IVP PRN ×2 (10:46→11:41)
[2023-08-13] MEDS ORDERED: ATROPINE ABBOJECT 1 MG/10 ML SYRINGE IVP PRN (10:46)
[2023-08-13] MEDS ORDERED: ONDANSETRON 4 MG/2 ML VIAL IVP PRN ×3 (10:46→14:25)
[2023-08-13] MEDS ORDERED: METOCLOPRAMIDE 10 MG/2 ML VIAL IVP PRN ×2 (10:46→11:41)
[2023-08-13] MEDS ORDERED: ePHEDrine 50 MG/ML VIAL IVP PRN ×2 (10:46→11:41)
[2023-08-13] MEDS ORDERED: HYDROmorphone 0.5 MG/0.5 ML SYRINGE IVP PRN (10:46)
[2023-08-13] MEDS ORDERED: fentaNYL 100 MCG/2 ML VIAL IVP PRN (10:46)
[2023-08-13] MEDS ORDERED: MORPHINE 2 MG/ML CARPUJECT IVP PRN (10:46)
--- NOTE | 2023-08-13 10:46 | ANESTHESIA ---
Pre-Anesthesia VS, & Labs - Diagnosis abnormal uterine bleeding - Procedure LIDA Height: 5 ft 6 in Weight (kg): 91.7 kg Body Mass Index: 32.6 BMI Classification: Obese - NPO >8 hours - Is Patient ?: No - Lab Results Current Lab Results: Laboratory Tests 08/13/23 08:10: POC Whole Bld Glucose 85 Lab results reviewed: Yes Home Medications and Allergies Home Medications: Ambulatory Orders No Known Home Medications 08/09/23 Active Medications Enoxaparin Sodium (Enoxaparin 40 Mg/0.4 Ml Syringe) 40 mg SUBQ DAILY QUE No Known Home Medications 08/09/23 Allergies/Adverse Reactions: Allergies Allergy/AdvReac Type Severity Reaction Status Date / Time No Known Drug Allergies Allergy Verified 08/13/23 07:20 Anes History & Medical History - Anesthetic History Anesthesia Complications: reports: No previous complications Family history of Anesthesia Complications: Denies Family history of Malignant Hyperthermia: Denies - Medical History Cardiovascular: reports: None Pulmonary: reports: None Gastrointestinal: reports: None Urinary: reports: None Musculoskeletal: reports: None Endocrine/Autoimmune: reports: None Blood Disorders: reports: None Skin: reports: None Smoking Status: Never smoker - Surgical History General: reports: Cholecystectomy Gynecologic: reports: section, Oophrectomy Orthopedic: reports: Arthroscopic surgery Plan Anesthesia Type: General, Spinal (with narcotics, fentanyl, PF MS) Consent for Procedure(s) Verified and Reviewed: Yes Code Status: Attempt Resuscitation ASA classification: 2-Mild systemic disease Is this case an emergency?: Yes
[2023-08-13] MEDS ORDERED: METHYLENE BLUE 0.5% 50 MG/10 ML AMPULE ONE (10:56)
[2023-08-13] MEDS ORDERED: LIDOCAINE 1%-EPI 1:100000 20 ML MDV ONE (10:56)
[2023-08-13] MEDS ORDERED: LACTATED RINGERS 1,000 ML IV SCH (11:00)
[2023-08-13] MEDS ORDERED: ENOXAPARIN 40 MG/0.4 ML SYRINGE SUBQ SCH (11:00)
[2023-08-13] MEDS ORDERED: fentaNYL 100 MCG/2 ML VIAL IT ONE (11:07)
[2023-08-13] MEDS ORDERED: MORPHINE PF 5 MG/10 ML VIAL IT ONE (11:07)
[2023-08-13] MEDS ORDERED: ONDANSETRON 4 MG/2 ML VIAL ONE (11:23)
[2023-08-13] MEDS ORDERED: NALBUPHINE 10 MG/ML AMP IVP PRN (11:41)
[2023-08-13] MEDS ORDERED: diphenhydrAMINE INJ 50 MG/ML VIAL IVP PRN (11:41)
[2023-08-13] MEDS ORDERED: TRANEXAMIC ACID 1,000 MG/10 ML VIAL ONE (12:21)
[2023-08-13] MEDS ORDERED: SUGAMMADEX 200 MG/2 ML VIAL IVP ONE (12:52)
[2023-08-13] MEDS ORDERED: LACTATED RINGERS 200 ML IV ONE ×2 (14:12)
[2023-08-13] MEDS ORDERED: oxyCODONE 5 MG TABLET PO PRN (14:25)
[2023-08-13] MEDS ORDERED: ONDANSETRON ODT 4 MG TABLET TL PRN (14:25)
--- NOTE | 2023-08-13 14:35 | OPERATIVE REPORT ---
Operative Report - Other Other Information/Narrative: OPERATIVE NOTE Pre-operative diagnosis: 1. Abnormal uterine bleeding - failed conservative measures. 2. h/o 3 prior C/S 3. per pelvic exam: pelvic adhesions preventing successful TVH or LAVH 4. 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[employer] Warfare: Homero Anesthesia: Spinal with general anesthesia Findings: 210g uterus + cervix dense adhesions of uterus to anterior abdominal wall surgically absent L tube and ovary normal appearing R tube R ovary with 6cm simple ovarian cyst - drained for clear fluid in order to assist with visualization no bowel or bladder was harmed during this case Pathology: Complications: None apparent EBL: 150cc UOP: 300cc IVF: 1200cc Procedure in detail: After risks benefits and alternatives, as well as indication for procedure and anticipated post-operative recovery course, were discussed with the patient informed consent was obtained and patient was taken to the operating theater where spinal anesthesia was administered without difficulty for post-operative pain control, followed by general anesthesia. Laird catheter was inserted in normal sterile fashion. Vaginal prep was done. Pt was prepared and draped in normal sterile fashion. Anesthesia was tested and found to be adequate. Prior to skin incision pt received recommended antibiotics, surgical time out was performed, and all persons in the operating theater participated in time out and agreed. Pfannensteil skin incision made with scalpel. Carried down to level of fasia. Fascia incised with scalpel and extended. Noted to have what appeared to be uterine bleeding during extension of fascial incision. Peritoneum entered L of midline without difficulty and surgical field evaluated and revealed dense yuhaaviat[place] rine adhesions along entirety of anterior wall. These adhesions were carefully disected layer by layer until uterus was able to be exteriorized. We then sequentially clamped, cut and ligated the round ligament, ovarian ligament, broad ligament, and uterine artery bilaterally -- such that as we continued to dissect the dense uterine adhesions off of the fascia we would have less bleeding - as initially with adhesion dissection there was not an insignificant amount of bleeding - indeed, TXA was administered while we were ligating the attachments until we could get to the uterine bilaterally. Once blood supply had been cut off, we continued to dissect layer by layer the adhesions until the uterus was freed from the fascia, wherein we sequentially clamped, cut, and ligated the rest of the uterine and paracervical attachments. We bilaterally clamped under the cervix, across the vaginal cuff, and then ligated the vaginal cuff in a way that the vagina was never opened to the abdomen. Specimen was removed, cervix inspected, fully removed, and passed off to circulating nurse. We identified the R fallopian tube, which required cystotomy and drainage of clear fluid, then we ensured the cystotomy site was hemostatic. We grasped the fallopian tube with a jennifer clamp and sequentially clamped, cut, and ligated it from it's attachment - and passed it off with specimen. We then inspected pedicles - additional figure of 8 suture placed superficially on R ovarian pedicle, as well as the cuff. This ensured hemostasis. Abdomen irrigated. hemostasis ensured. Area of dense adhesions of fascia inspected, bovie for hemostasis and then surgifoam applied - hemostasis achieved. We did ligate an additional adhesion off of the anterior abdominal wall to prevent internal herniation. All reinspected, hemostatic. Fascia closed with 0 maxon loop in continuous fashion. Subcutaneous tissue irrigated, and then closed with 2.0 vicryl in running fashion. Skin incision closed with 4.0 vicryl, subcuticular suture. Pt tolerated procedure well. All counts correct. Pt to PACU in stable condition.
--- NOTE | 2023-08-13 14:36 | ANESTHESIA POST OP EVALUATION ---
Anesthesia Post Eval - Post Anesthesia Eval Vitals: Last Vital Signs Temp 36.6 C 08/13/23 14:29 Pulse 86 08/13/23 14:29 Resp 20 08/13/23 14:29 BP 113/71 08/13/23 14:29 Pulse Ox 97 08/13/23 14:29 O2 Flow Rate CV Function Including HR & BP: Stable Pain Control: Satisfactory Nausea & Vomiting: Negative Mental Status: Baseline Respiratory Status: Airway Patent Hydration Status: Satisfactory Anesthesia Complications: None
[2023-08-13] MEDS ORDERED: LACTATED RINGERS 1,000 ML IV ONE ×2 (14:41)
[2023-08-13] MEDS: ACETAMINOPHEN 500 MG TABLET PO SCH ×2 (16:43→22:34)
[2023-08-13] MEDS: IBUPROFEN 600 MG TABLET PO SCH (18:35)
[2023-08-13] MEDS: DOCUSATE SODIUM 100 MG CAPSULE PO SCH (22:35)
[2023-08-14] MEDS: IBUPROFEN 600 MG TABLET PO SCH ×3 (00:06→11:39)
[2023-08-14 06:01] LABS: HCT - HEMATOCRIT 32.7 % (37.0-47.0); HGB - HEMOGLOBIN 11.4 g/dL (12.0-16.0); LYMPHOCYTES # (AUTO) 1.3 10^3/uL (1.5-3.5); LYMPHOCYTES % (AUTO) 17.1 %; MEAN CORPUSCULAR HEMOGLOBIN 31.8 pg (27.0-31.0); MEAN CORPUSCULAR HGB CONC 34.9 g/dL (32.0-36.0); MEAN CORPUSCULAR VOLUME 91.1 fL (81.0-99.0); MEAN PLATELET VOLUME 9.2 fL (7.9-10.8); MONOCYTES # (AUTO) 0.6 10^3/uL (0.0-1.0); MONOCYTES % (AUTO) 7.5 %; NEUTROPHILS # (AUTO) 5.5 10^3/uL (1.5-6.6); NEUTROPHILS % (AUTO) 75.1 %; PLT - PLATELET COUNT 218 10^3/uL (130-450); RED BLOOD COUNT 3.59 10^6/uL (4.20-5.40); WHITE BLOOD COUNT 7.4 x10^3/uL (4.8-10.8)
[2023-08-14] MEDS: ACETAMINOPHEN 500 MG TABLET PO SCH ×2 (06:53→16:09)
[2023-08-14] MEDS ORDERED: ENOXAPARIN 40 MG/0.4 ML SYRINGE SUBQ SCH (09:00)
[2023-08-14] MEDS: DOCUSATE SODIUM 100 MG CAPSULE PO SCH (11:39)
[2023-08-14 16:17] VITALS: BP 112/74; O2SAT 93
--- NOTE | 2023-08-14 16:29 | DISCHARGE SUMMARY ---
"Discharge Summary Admit Date: 08/13/23 Discharge Date: 08/14/23 Discharging Provider: angi Primary Care Provider: angi Code Status: Attempt Resuscitation Condition at Discharge: Good Discharge Disposition: Home, Self Care - DIAGNOSES Admission Diagnoses: post op from [facility] for AUB Discharge Diagnoses with Status of Each Condition: PO from [facility] for AUB - all PO milestones met all discharge criteria reviewed ready to D/C home has help and support at home - HPI History of Present Illness: Pt well, scant VB, kvng PO, + void, + flat, + ambulation Pt reports ready to go home, has safe home to return to Reviewed: discharge instructions, follow up instructions, precautions All questions answered Pt verbalized understanding VSS NAD Conjunctiva pink, pale sclera +S1, S2 CTAB Abd soft, NT, ND INC CDI - dressing removed Ext: neg CCE - CONSULTS | PROCEDURES Procedures: LIDA, post operative care - HOSPITAL COURSE Hospital Course: patient admitted for PO care after LIDA with R ovarian cystotomy and right salpingectomy met all post operative milestones without complication and was D/C home on POD#1 - ALLERGIES Allergies/Adverse Reactions: Allergies Allergy/AdvReac Type Severity Reaction Status Date / Time No Known Drug Allergies Allergy Verified 08/13/23 07:20 - MEDICATIONS Home Medications: Ambulatory Orders Medication Instructions Recorded Confirmed No Known Home Medications 08/09/23 08/13/23 - LABS Result Diagrams: 08/14/23 05:45 - QUALITY (Female Hip Fx Only) Was patient sent home on osteoporosis medication?: No - FOLLOW UP Follow Up: 2 weeks - with Dr. Vega - TIME SPENT Time Spent in Discharge (Minutes): 30"
--- NOTE | 2023-08-14 16:34 | Discharge Plan ---
Discharge Plan Problem Reviewed?: Yes Disposition: Home, Self Care Condition: Good Diet: Regular Activity Restrictions: No Restrictions Shower Restrictions: No Driving Restrictions: No Weight Bearing: Full Weight Instruction Topics: Hysterectomy Recovery, Hysterectomy Abdominal Dc, Hysterectomy Self Care After Health Concerns: routine post op care Plan of Treatment: f/u 2 weeks and call if any fevers, vaginal bleeding, increased wound pain, or concerns Assessment: stable, ready to D/C home No Smoking: If you smoke, Please STOP! Call for help. Follow-up with: Carlo Vega MD [Provider Admit Priv/Credential] -
== END 2023-08-14 18:07 | disposition home or self-care (01) ==
LOC: SDS 07:34 → EDSTATUS 08:45 → MS2 14:01 → SDS 08-14 18:07
PROVIDERS: ATTEND Obstetrics & Gynecology
PROC: 0UT50ZZ Resection of Right Fallopian Tube, Open Approach (ICD-10-PCS; 2023-08-13)
PROC: 0UT90ZZ Resection of Uterus, Open Approach (ICD-10-PCS; principal; 2023-08-13 08:45)
DX: N93.9 Abnormal uterine and vaginal bleeding, unspecified (principal); N83.201 Unspecified ovarian cyst, right side; Z90.79 Acquired absence of other genital organ(s); Z90.721 Acquired absence of ovaries, unilateral; E66.9 Obesity, unspecified; Z68.32 Body mass index [BMI] 32.0-32.9, adult
CPT/HCPCS: 36415; 58150; 81025; 85025; A9270; J1650; J2274; J2300; J7120